=== PATIENT | female | born 1950 | race Caucasian/White ===

== ENCOUNTER 2017-02-27 12:05 | Emergency (ER) | payer MEDICARE, OTHER ==
[~2017-02-27] VITALS: Ht 160 cm; Wt 85.0 kg
[~2017-02-27 12:05] MED LIST: ALBU18HF IH; ALEN70TA30 PO; AMLO2.5T78 PO; ASC500 PO; ASPI-664 PO; DICL100G37 TOP; DOCU-144 PO; ERGO500014 PO; ESOM40CA PO; FER325 PO; FLUO20CA38 PO; HYDR12.58 PO; LEVO100T87 PO; LEVO500T10 PO; LORA-186 PO; METF1000 PO; METO5TAB58 PO; PREMVAG VAG; PROC10TA10 PO; RPGL.5T PO; SIMV20TA2 PO
[2017-02-27 12:08] VITALS: Ht 160 cm; Wt 85.0 kg
[2017-02-27] MEDS ORDERED: LIDOCAINE 1% (MDV) 20 ML INJ SC ONE (13:30)
[2017-02-27] MEDS ORDERED: IBUP-1542 PO (14:07)
[2017-02-27] MEDS ORDERED: CLIN-73 PO (14:08)
--- NOTE | 2017-02-27 17:05 | ERD ---
ER Documentation Chief Complaint Date/Time DATE: 02/27/17 TIME: 16:51 Chief Complaint ruptured abscess HPI Patient is a 66-year-old female with a past medical history of diabetes, hypertension, hyperlipidemia, hypothyroidism, s/p colostomy bag placement presents to the emergency department for concerns of an abscess. Patient states 3 days ago she developed redness and swelling to her perineum. Patient states this morning, the affected area "exploded". Patient denies any fevers, chills, nausea, vomiting, abdominal pain. Patient denies any history of insect bites. Patient does not stool through her rectum, stool output is solely through colostomy bag. She reports normal stool output through colostomy bag. ROS All systems reviewed and are negative except as per history of present illness. Medications Home Meds Active Scripts Clindamycin Hcl* (Clindamycin Hcl*) 300 Mg Capsule, 300 MG PO TID for 10 Days, CAP Prov:ALDEN BELCHER PA-C 02/27/17 Ibuprofen* (Motrin*) 600 Mg Tab, 600 MG PO Q6, #30 TAB Prov:ALDEN BELCHER PA-C 02/27/17 Ascorbic Acid (Vitamin C) 500 Mg Tab, 500 MG PO BID, #60 TAB Prov:KRISHNA MOSER MD 06/05/16 Levofloxacin* (Levofloxacin*) 500 Mg Tablet, 500 MG PO DAILY, #5 TAB Prov:KRISHNA MOSER MD 06/05/16 Prochlorperazine* (Prochlorperazine*) 10 Mg Tablet, 10 MG PO Q6H Y for NAUSEA, # 20 TAB Prov:KRISHNA MOSER MD 06/05/16 Hydrochlorothiazide* (Hydrochlorothiazide*) 12.5 Mg Tablet, 12.5 MG PO DAILY, # 30 TAB Prov:KRISHNA MOSER MD 06/05/16 Ferrous Sulfate* (Ferrous Sulfate*) 325 Mg Tabec, 325 MG PO BID, #60 TAB Prov:KRISHNA MOSER MD 06/05/16 Reported Medications Amlodipine Besylate* (Amlodipine Besylate*) 2.5 Mg Tablet, 2.5 MG PO DAILY, TAB 07/17/14 Diclofenac Sodium* (Voltaren* Gel) 1% -100 Gm Gel, 2 GM TOP BID, TUB 07/17/14 Ergocalciferol* (Drisdol* (Vitamin D2)) 50,000 Unit Capsule, 25934 UNITS PO EVERY MONTH, CAP 07/17/14 Albuterol Sulfate* (Ventolin HFA*) 18 Gm Hfa.aer.ad, 2 PUFF IH Q4H Y for WHEEZING AND RESP DISTRESS, EA 07/17/14 Simvastatin (Simvastatin) 20 Mg Tablet, 20 MG PO HS, TAB 07/17/14 Estrogens Conjugated* (Premarin* Vaginal Cream) 1 Applic Cr, 1 APPLIC VAG QHS X 7 DAYS, TUB 07/17/14 Repaglinide* (Prandin*) 0.5 Mg Tablet, 0.5 MG PO TID, TAB 07/17/14 Esomeprazole Mag Trihydrate (Nexium) 40 Mg Capsule.dr, 40 MG PO DAILY, CAP 07/17/14 Metoclopramide* (Reglan*) 5 Mg Tablet, 5 MG PO TID Y for NAUSEA AND OR VOMITING , TAB 07/17/14 Metformin Hcl* (Metformin Hcl*) 1,000 Mg Tablet, 1000 MG PO BID, TAB 07/17/14 Levothyroxine Sodium* (Levothyroxine Sodium*) 100 Mcg Tablet, 100 MCG PO DAILY, TAB 07/17/14 Alendronate Sodium* (Fosamax*) 70 Mg Tablet, 70 MG PO Q7D, TAB 07/17/14 Fluoxetine Hcl* (Prozac*) 20 Mg Capsule, 20 MG PO DAILY, CAP 07/17/14 Docusate Sodium* (Colace*) 100 Mg Capsule, 100 MG PO BID, CAP 07/17/14 Loratadine* (Claritin*) 10 Mg Tablet, 10 MG PO DAILY, TAB 07/17/14 Aspirin* (Aspirin* (EC)) 81 Mg Tablet.dr, 81 MG PO DAILY, TAB 07/17/14 Allergies Allergies: Coded Allergies: Sulfa (Sulfonamide Antibiotics) (Verified Allergy, Mild, NAUSEA, 06/01/16) iodine (Verified Allergy, Mild, RASH, 06/01/16) metronidazole (Verified Allergy, Mild, ITCHING, 06/01/16) PMhx/Soc History of Surgery: Yes (HERNIA SURGERY AND COLORECTAL SURGERY FOR CANCER) Anesthesia Reaction: No Hx Neurological Disorder: No Hx Respiratory Disorders: No Hx Cardiac Disorders: Yes (HTN) Hx Psychiatric Problems: No Hx Alcohol Use: No Hx Substance Use: No Hx Tobacco Use: No Smoking Status: Never smoker Physical Exam Vitals Vital Signs Date Time Temp Pulse Resp B/P Pulse Ox O2 Delivery O2 Flow Rate FiO2 02/27/17 12:08 98.8 102 18 146/68 99 Physical Exam GENERAL: Well-developed, well-nourished female. Appears in no acute distress. HEAD: Normocephalic, atraumatic. EYES: Pupils are equally reactive bilaterally. EOMs grossly intact. No conjunctival erythema. ENT: Moist mucous membranes. No uvula deviation. No kissing tonsils. NECK: Supple. No meningismus. Normal range of motion of the neck. LUNG: Clear to auscultation bilaterally. No rhonchi, wheezing, rales or coarse breath sounds. HEART: Regular rate and rhythm. No murmurs, rubs or gallops. ABDOMEN: No scars, ecchymosis or rashes noted. Soft, nontender, and nondistended. Positive bowel sounds in all four quadrants. No rebound tenderness , no guarding. (-) McBurney's point tenderness. No CVA tenderness. BUTTOCKS: Right buttocks erythematous and swollen with possible ulceration. Active yellow discharge. No anal opening, closed off. BACK: No midline tenderness. EXTREMITIES: Equal pulses bilaterally. No peripheral clubbing, cyanosis or edema. No unilateral leg swelling. NEUROLOGIC: Alert and oriented. Moving all four extremities without any difficulty. Normal speech. Steady gait. SKIN: Normal color. Warm and dry. No rashes or lesions. Results 24 hrs Current Medications Medications (Trade) Dose Ordered Sig/Armen Route PRN Reason Start Time Stop Time Status Last Admin Dose Admin Lidocaine (Xylocaine 1% (Mdv) 20 ml) 20 ml ONCE ONCE SC 02/27/17 13:30 02/27/17 13:31 DC Procedures/MDM ED COURSE: The patient was stable throughout ED course. I kept the patient and/or family informed of laboratory and diagnostic imaging results throughout the ED course. PROCEDURES: INCISION AND DRAINAGE: The patient was verbally consented prior to procedure. Patient was explained the risks, benefits and alternatives to this procedure. Location: R buttocks Abscess size: 2 cm circular abscess with large surrounding area of erythema Anesthesia: local 1% lidocaine, 5 cc Preparation: The area was prepped in a sterile fashion using cloraseptic solution. A sterile field was prepared. Technique: A sterile 11 blade scalpel was used to make a 1 cm linear incision into the abscess. Procedure: A midline abscess incision was made using a sterile scalpel in a linear fashion. Purulent material was expressed with direct pressure. Blunt probing was used to break up loculations. Bleeding was minimal. Packing: none The patient tolerated the procedure well with no complications. The wound was dressed in sterile gauze. The patient was neurovascularly intact post- procedure. Post-procedural wound care was discussed with the patient. MEDICAL DECISION MAKING: Patient is a 66-year-old female with history of hypertension, diabetes, hyperlipidemia, s/p colostomy bag who presents with right buttocks abscess. Vital signs were reviewed. Patient is afebrile. Patient was not hypoxic. Incision and drainage was performed. Purulent discharge was expressed from the affected site. At this time the patient's presentation is consistent with right buttocks abscess. Low suspicion for perirectal abscess, perianal abscess , fistula, external hemorrhoids. Patient was advised to return to the ED in 2 days for wound recheck. Patient advised to take full course of antibiotics. She was examined by my supervising physician Dr. Chandler, who agrees that patient is stable for outpatient management at this time. PRESCRIPTION: Clindamycin DISCHARGE: At this time, patient is stable for discharge and outpatient management. Wound recheck advised in 2 days. I have instructed the patient to follow-up with his/ her primary care physician in 1-2 days. I have discussed with the patient the possibility of needing to see a specialist for further workup and imaging studies if symptoms persist. I have instructed the patient to promptly return to the ER for any new or worsening symptoms including increased pain, fever, nausea, vomiting, weakness or LOC. The patient and/or family expressed understanding of and agreement with this plan. All questions were answered. Home care instructions were provided. Departure Diagnosis: Primary Impression: Abscess Condition: Stable Patient Instructions: Abscess, Incision And Drainage Referrals: DAGO CORONADO MD (PCP) Additional Instructions: Return in 2 days for wound recheck. Call your primary care doctor TOMORROW for an appointment during the next 1-2 days.See the doctor sooner or return here if your condition worsens before your appointment time. ALDEN BELCHER PA-C Feb 27, 2017 17:05 Call your primary care doctor TOMORROW for an appointment during the next 1-2 days.See the doctor sooner or return here if your condition worsens before your appointment time. ALDEN BELCHER PA-C Feb 27, 2017 17:05
== END 2017-02-27 14:24 | disposition home or self-care (01) ==
LOC: FTE 12:05
DX: L02.31 Cutaneous abscess of buttock (principal); I10 Essential (primary) hypertension; E11.9 Type 2 diabetes mellitus without complications; E03.9 Hypothyroidism, unspecified; Z79.82 Long term (current) use of aspirin; Z79.84 Long term (current) use of oral hypoglycemic drugs; Z85.038 Personal history of other malignant neoplasm of large intestine

== ENCOUNTER 2017-03-18 19:08 | Emergency (ER) | payer MEDICARE, OTHER ==
[~2017-03-18] VITALS: Ht 162.6 cm; Wt 86.0 kg
[~2017-03-18 19:08] MED LIST changes: +CLIN-73 PO; +IBUP-1542 PO
[2017-03-18 19:10] VITALS: Ht 162.6 cm; Wt 86.0 kg
[2017-03-18] MEDS ORDERED: ONDANSETRON 4 MG INJ IV STA (20:18)
[2017-03-18] MEDS ORDERED: HYDROmorphONE 1 MG/ML SYG IV STA (20:18)
[2017-03-18] MEDS ORDERED: SOD CHLORIDE 0.9% 1,000 ML IV STA (20:18)
[2017-03-18 20:40] LABS: BASOPHILS % 0.3 % (0.0-2.0); EOSINOPHILS # 0.1 10^3/ul (0.0-0.5); EOSINOPHILS % 1.1 % (0.0-7.0); HEMATOCRIT 39.5 % (37.0-47.0); HEMOGLOBIN 12.9 g/dl (12.0-16.0); LYMPHOCYTES # 2.3 10^3/ul (0.8-2.9); LYMPHOCYTES % 19.6 % (15.0-51.0); MEAN CORPUSCULAR HEMOGLOBIN 28.3 pg (29.0-33.0); MEAN CORPUSCULAR HGB CONC 32.7 g/dl (32.0-37.0); MEAN CORPUSCULAR VOLUME 86.6 fl (82.0-101.0); MEAN PLATELET VOLUME 12.9 fl (7.4-10.4); MONOCYTE # 0.6 10^3/ul (0.3-0.9); MONOCYTES % 5.5 % (0.0-11.0); NEUTROPHIL # 8.4 10^3/ul (1.6-7.5); NEUTROPHILS % 73.1 % (39.0-77.0); PLATELET COUNT 211 10^3/UL (140-415); RED BLOOD COUNT 4.56 10^6/ul (4.20-5.40); RED CELL DISTRIBUTION WIDTH 14.6 % (11.5-14.5); WHITE BLOOD COUNT 11.5 10^3/ul (4.8-10.8)
[2017-03-18 20:59] LABS: ALBUMIN/GLOBULIN RATIO 1.51; BILIRUBIN,INDIRECT 0.2 mg/dl (0-1.1); BILIRUBIN,TOTAL 0.2 mg/dl (0.2-1.3); CALCIUM 9.7 mg/dl (8.4-10.2); CREATININE 0.72 mg/dl (0.44-1.00); TOTAL PROTEIN 8.3 g/dl (6.1-8.1)
--- NOTE | 2017-03-18 21:04 | RADRPT ---
PROCEDURE: CT Abdomen and Pelvis without contrast. CLINICAL INDICATION: Pain. TECHNIQUE: CT scan of the abdomen and pelvis was performed on a multidetector slice CT scanner. No intravenous contrast material was utilized. Sagittal and coronal reformatted images were obtained fr om the axial source images. Images were reviewed on a high-resolution PACS workstation. Exam CTDlvol = 18 mGy and DLP = 994 Gy-cm. One of the following 3 dose reduction techniques were used: Automated exposure control; adjustment of the mA and/or kV according to patient size; or use of iterative rec onstruction technique. COMPARISON: 06/01/2016. FINDINGS: The patient status post rectosigmoid colon resection. There is redemonstrated left lower quadrant c olostomy. The colon proximal to the colostomy is stool filled in a normal caliber. There is a simil ar pattern of dilated mid and distal small bowel extending into the pelvis with a probable transitio n point, although not well defined, suggesting a partial small bowel obstruction. Appendix is not d istinctly visualized. There is no evidence for diverticulitis. There is a small amount of pelvic f ree fluid. There is no free intraperitoneal gas. The liver is overall normal in size. No intrahepatic lesions are identified. The gallbladder is norm al in appearance. There is no definite biliary ductal dilation. Pancreas is normal in appearance. Th e spleen is unremarkable.. There are no adrenal masses. The aorta is normal caliber. Atheroscleroti c vascular calcifications are present. Kidneys are normal in appearance without hydronephrosis, mass or calculus.. Ureters are of normal ca liber and without evidence for an obstructing calculus. The urinary bladder is normal in appearance .. Uterus unremarkable. The ovaries are not well characterized. Limited evaluation of the lung bases is unremarkable. There are degenerative changes of the lumbar spine. IMPRESSION: 1. Status post rectosigmoid colon resection with left lower quadrant colostomy. 2. Moderately dilated loops of mid and distal small bowel extending to the pelvis with probable tra nsition point, not well defined. Appearance is suggestive of a partial small bowel obstruction, sim ilar in appearance to the prior study. 3. Small amount of pelvic free fluid. 4. Otherwise no change. RPTAT: HMVK .Maurice Koenig MD, MD Date Time Electronically viewed and signed by .Maurice Koenig MD, MD on 03/18/2017 21:04 .K/
[2017-03-18] MEDS ORDERED: HYDR-902 PO (21:18)
[2017-03-18] MEDS ORDERED: DOCU-144 PO (21:18)
[2017-03-18] MEDS ORDERED: SENN-53 PO (21:18)
[2017-03-18] MEDS ORDERED: FLUO20CA22 PO (21:29)
[2017-03-18] MEDS ORDERED: ASCO500C7 PO (21:30)
[2017-03-18] MEDS ORDERED: SIMV20TA PO (21:30)
[2017-03-18] MEDS ORDERED: AMLO2.5T78 PO (21:31)
[2017-03-18] MEDS ORDERED: ASPI-664 PO (21:31)
[2017-03-18] MEDS ORDERED: BENA1TAB13 PO (21:31)
[2017-03-18] MEDS ORDERED: ALEN70TA30 PO (21:32)
[2017-03-18] MEDS ORDERED: REPA0.5T3 PO (21:32)
[2017-03-18] MEDS ORDERED: METF1000 PO (21:32)
[2017-03-18] MEDS ORDERED: ESOM40CA PO (21:33)
[2017-03-18] MEDS ORDERED: CANA100T PO (21:33)
[2017-03-18] MEDS ORDERED: LEVO125T75 PO (21:34)
[2017-03-18] MEDS ORDERED: OMEG1CAP2 PO (21:34)
--- NOTE | 2017-03-18 21:34 | ERD ---
ER Documentation Chief Complaint Date/Time DATE: 03/18/17 TIME: 21:32 Chief Complaint lower abd pain w/ colostomy HPI Patient is a 66-year-old female with hypertension, diabetes, and previous small bowel obstruction who presents with abdominal pain. The abdominal pain started at 11 AM. She feels pain in the whole abdomen. She had vomiting. She did have a bowel movement this morning and her colostomy. She denies fevers. She has had no treatment as of yet. Upon review of old medical records the patient has had multiple visits to the ER for various complaints. She said that her primary doctor is Dr. Sarthak Resendiz. Her log data technician is Dr. Richardson and her surgeon is a surgeon at [facility]. ROS All systems reviewed and are negative except as per history of present illness. Medications Home Meds Active Scripts Sennosides* (Senna Lax*) 8.6 Mg Tablet, 1 TAB PO DAILY, #30 TAB Prov:REG RICE MD 03/18/17 Docusate Sodium* (Colace*) 100 Mg Capsule, 100 MG PO BID, #60 CAP Prov:REG RICE MD 03/18/17 Hydrocodone/Acetaminophen ([place] 10-325 Tablet) 1 Each Tablet, 1 TAB PO Q6H Y for PAIN, #7 TAB Prov:REG RICE MD 03/18/17 Reported Medications Benazepril-Hydrochlorothiazide (Benazepril-Hydrochlorothiazide) 20-12.5 Mg Tablet, 1 TAB PO DAILY, #30 TAB 03/18/17 Aspirin* (Aspirin* EC) 81 Mg Tablet.dr, 81 MG PO DAILY, TAB 03/18/17 Amlodipine Besylate* (Amlodipine Besylate*) 2.5 Mg Tablet, 2.5 MG PO BID, #30 TAB 03/18/17 Simvastatin* (Zocor*) 20 Mg Tablet, 20 MG PO QHS, #30 TAB 03/18/17 Ascorbic Acid* (Vitamin C*) 500 Mg Capsule.sa, 500 MG PO DAILY, CAP 03/18/17 Fluoxetine Hcl* (Fluoxetine Hcl*) 20 Mg Capsule, 20 MG PO DAILY, CAP 03/18/17 Discontinued Reported Medications Amlodipine Besylate* (Amlodipine Besylate*) 2.5 Mg Tablet, 2.5 MG PO DAILY, TAB 07/17/14 Diclofenac Sodium* (Voltaren* Gel) 1% -100 Gm Gel, 2 GM TOP BID, TUB 07/17/14 Ergocalciferol* (Drisdol* (Vitamin D2)) 50,000 Unit Capsule, 37668 UNITS PO EVERY MONTH, CAP 07/17/14 Albuterol Sulfate* (Ventolin HFA*) 18 Gm Hfa.aer.ad, 2 PUFF IH Q4H Y for WHEEZING AND RESP DISTRESS, EA 07/17/14 Simvastatin (Simvastatin) 20 Mg Tablet, 20 MG PO HS, TAB 07/17/14 Estrogens Conjugated* (Premarin* Vaginal Cream) 1 Applic Cr, 1 APPLIC VAG QHS X 7 DAYS, TUB 07/17/14 Repaglinide* (Prandin*) 0.5 Mg Tablet, 0.5 MG PO TID, TAB 07/17/14 Esomeprazole Mag Trihydrate (Nexium) 40 Mg Capsule.dr, 40 MG PO DAILY, CAP 07/17/14 Metoclopramide* (Reglan*) 5 Mg Tablet, 5 MG PO TID Y for NAUSEA AND OR VOMITING , TAB 07/17/14 Metformin Hcl* (Metformin Hcl*) 1,000 Mg Tablet, 1000 MG PO BID, TAB 07/17/14 Levothyroxine Sodium* (Levothyroxine Sodium*) 100 Mcg Tablet, 100 MCG PO DAILY, TAB 07/17/14 Alendronate Sodium* (Fosamax*) 70 Mg Tablet, 70 MG PO Q7D, TAB 07/17/14 Fluoxetine Hcl* (Prozac*) 20 Mg Capsule, 20 MG PO DAILY, CAP 07/17/14 Docusate Sodium* (Colace*) 100 Mg Capsule, 100 MG PO BID, CAP 07/17/14 Loratadine* (Claritin*) 10 Mg Tablet, 10 MG PO DAILY, TAB 07/17/14 Aspirin* (Aspirin* (EC)) 81 Mg Tablet.dr, 81 MG PO DAILY, TAB 07/17/14 Discontinued Scripts Clindamycin Hcl* (Clindamycin Hcl*) 300 Mg Capsule, 300 MG PO TID for 10 Days, CAP Prov:ALDEN BELCHER PA-C 02/27/17 Ibuprofen* (Motrin*) 600 Mg Tab, 600 MG PO Q6, #30 TAB Prov:ALDEN BELCHER PA-C 02/27/17 Ascorbic Acid (Vitamin C) 500 Mg Tab, 500 MG PO BID, #60 TAB Prov:KRISHNA MOESR MD 06/05/16 Levofloxacin* (Levofloxacin*) 500 Mg Tablet, 500 MG PO DAILY, #5 TAB Prov:KRISHNA MOSER MD 06/05/16 Prochlorperazine* (Prochlorperazine*) 10 Mg Tablet, 10 MG PO Q6H Y for NAUSEA, # 20 TAB Prov:KRISHNA MSOER MD 06/05/16 Hydrochlorothiazide* (Hydrochlorothiazide*) 12.5 Mg Tablet, 12.5 MG PO DAILY, # 30 TAB Prov:KRISHNA MOSER MD 06/05/16 Ferrous Sulfate* (Ferrous Sulfate*) 325 Mg Tabec, 325 MG PO BID, #60 TAB Prov:KRISHNA MOSER MD 06/05/16 Allergies Allergies: Coded Allergies: Sulfa (Sulfonamide Antibiotics) (Verified Allergy, Mild, NAUSEA, 03/18/17) iodine (Verified Allergy, Mild, RASH, 03/18/17) metronidazole (Verified Allergy, Mild, ITCHING, 03/18/17) PMhx/Soc History of Surgery: Yes (HERNIA SURGERY AND COLORECTAL SURGERY FOR CANCER) Anesthesia Reaction: No Hx Neurological Disorder: No Hx Respiratory Disorders: No Hx Cardiac Disorders: Yes (HTN) Hx Psychiatric Problems: No Hx Alcohol Use: No Hx Substance Use: No Hx Tobacco Use: No Smoking Status: Never smoker FmHx Family History: diabetes Physical Exam Vitals Vital Signs Date Time Temp Pulse Resp B/P Pulse Ox O2 Delivery O2 Flow Rate FiO2 03/18/17 19:10 98.6 67 20 111/73 98 Physical Exam Const: No acute distress Head: Atraumatic Eyes: Normal Conjunctiva ENT: Normal External Ears, Nose and Mouth. Neck: Full range of motion..~ No meningismus. Resp: Clear to auscultation bilaterally Cardio: Regular rate and rhythm, no murmurs Abd: Soft, colostomy stoma is pink and putting out stool, generalized tenderness to palpation without rebound or guarding Skin: No petechiae or rashes Back: No midline or flank tenderness Ext: No cyanosis, or edema Neur: Awake and alert Psych: Normal Mood and Affect Result Diagram: 03/18/17200903/18/172009 Results 24 hrs Laboratory Tests Test 03/18/17 20:10 White Blood Count 11.510^3/ul Red Blood Count 4.5610^6/ul Hemoglobin 12.9g/dl Hematocrit 39.5% Mean Corpuscular Volume 86.6fl Mean Corpuscular Hemoglobin 28.3pg Mean Corpuscular Hemoglobin Concent 32.7g/dl Red Cell Distribution Width 14.6% Platelet Count 14144^3/UL Mean Platelet Volume 12.9fl Neutrophils % 73.1% Lymphocytes % 19.6% Monocytes % 5.5% Eosinophils % 1.1% Basophils % 0.3% Nucleated Red Blood Cells % 0.0/100WBC Neutrophils # 8.410^3/ul Lymphocytes # 2.310^3/ul Monocytes # 0.610^3/ul Eosinophils # 0.110^3/ul Basophils # 0.010^3/ul Nucleated Red Blood Cells # 0.010^3/ul Sodium Level 138mmol/L Potassium Level 4.0mmol/L Chloride Level 101mmol/L Carbon Dioxide Level 27mmol/L Anion Gap 14 Blood Urea Nitrogen 16mg/dl Creatinine 0.72mg/dl Glucose Level 190mg/dl Calcium Level 9.7mg/dl Total Bilirubin 0.2mg/dl Direct Bilirubin 0.00mg/dl Indirect Bilirubin 0.2mg/dl Aspartate Amino Transf (AST/SGOT) 36IU/L Alanine Aminotransferase (ALT/SGPT) 48IU/L Alkaline Phosphatase 83IU/L Total Protein 8.3g/dl Albumin 5.0g/dl Globulin 3.30g/dl Albumin/Globulin Ratio 1.51 Lipase 77U/L Current Medications Medications (Trade) Dose Ordered Sig/Armen Route PRN Reason Start Time Stop Time Status Last Admin Dose Admin Sodium Chloride (NS) 1,000 ml @ 1,000 mls/hr Q1H STAT IV 03/18/17 20:18 03/18/17 21:17 DC 03/18/17 20:23 Hydromorphone HCl (Dilaudid) 1 mg ONCE STAT IV 03/18/17 20:18 03/18/17 20:20 DC 03/18/17 20:24 Ondansetron HCl (Zofran Inj) 4 mg ONCE STAT IV 03/18/17 20:18 03/18/17 20:20 DC 03/18/17 20:24 Procedures/MDM CT scan of the abdomen pelvis shows possible partial small bowel obstruction per radiology. Patient is a 66-year-old female with diabetes, hypertension, colostomy, and previous small bowel obstruction who presents with abdominal pain. She did have vomiting today which she was putting out stool in her colostomy. The patient is in no acute distress here in the emergency department other than having generalized abdominal pain. Her white blood cell count is slightly elevated but I doubt infection or sepsis. I believe outpatient management is appropriate as she is making stool. This does not appear to be a full obstruction. The patient will be given a trial of outpatient management with [place], Colace, and senna. The patient can follow-up with the primary doctor within 24 hours and can return if symptoms worsen. Departure Diagnosis: Primary Impression: Partial small bowel obstruction Additional Impression: Abdominal pain Abdominal location: generalized Qualified Code: R10.84 - Generalized abdominal pain Condition: Fair Patient Instructions: Abdominal Pain Additional Instructions: Llame al doctor MAANA y [place] andry WOODROW PARA DENTRO DE 1-2 TORREZ.Dgale a la secretaria que nosotros le instruimos hacer esta woodrow.Avise o llame si bueno condicin se empeora antes de la woodrow. Regresa aqui si peor o no mejor. REG RICE MD Mar 18, 2017 21:34
[2017-03-18 21:38] VITALS: BP 131/58; PULSE 86; RESP 18
== END 2017-03-18 21:53 | disposition home or self-care (01) ==
LOC: E/R 19:08
DX: K56.60 Unspecified intestinal obstruction (principal); R10.84 Generalized abdominal pain; I10 Essential (primary) hypertension; E11.9 Type 2 diabetes mellitus without complications; Z79.82 Long term (current) use of aspirin; Z85.038 Personal history of other malignant neoplasm of large intestine
CPT/HCPCS: 36415; 74176; 80053; 83690; 85025; 96374; 96375; 99285; J1170; J2405; J7030

== ENCOUNTER 2018-09-11 02:08 | Emergency (ER) | END 2018-09-11 05:17 | disposition home or self-care (01) ==

== ENCOUNTER → 2019-01-20 | Outpatient (CLI) | payer MEDICARE, OTHER ==
[~2019-01-20] MED LIST changes: -ALBU18HF IH; -ALEN70TA30 PO; +ALEN70TA5 PO; -ASC500 PO; +ASCO500C7 PO; -ASPI-664 PO; +ASPI-817 PO; +BENA1TAB13 PO; +CANA100T PO; -CLIN-73 PO; -DICL100G37 TOP; -ERGO500014 PO; -FER325 PO; +FLUO20CA22 PO; -FLUO20CA38 PO; +HYDR-3980 PO; -HYDR12.58 PO; -IBUP-1542 PO; -LEVO100T87 PO; +LEVO125T7 PO; -LEVO500T10 PO; +LOPE2CAP PO; -LORA-186 PO; -METF1000 PO; +METF100010 PO; -METO5TAB58 PO; +OMEG1CAP2 PO; +ONDA4TAB14 PO; -PREMVAG VAG; -PROC10TA10 PO; +REPA0.5T3 PO; -RPGL.5T PO; +SENN-120 PO; +SIMV20TA PO; -SIMV20TA2 PO
== END | disposition home or self-care (01) ==
LOC: VAS 13:53
PROVIDERS: ATTEND Internal Medicine
DX: M79.89 Other specified soft tissue disorders (principal)
CPT/HCPCS: 93970

== ENCOUNTER 2019-04-21 05:13 | Observation (INO) | payer MEDICARE, OTHER ==
[~2019-04-21] VITALS: Ht 162.6 cm; Wt 92.1 kg
[~2019-04-21 05:13] MED LIST changes: +ATEN50TA PO; +CELE200C PO; +NAPR-688 PO; +REPA1TAB5 PO
[2019-04-21] MEDS ORDERED: ONDANSETRON 4 MG INJ IV STA (07:10)
[2019-04-21] MEDS ORDERED: SOD CHLORIDE 0.9% 500 ML IV STA (07:10)
--- NOTE | 2019-04-21 07:17 | ERD ---
ER Documentation Chief Complaint Chief Complaint PT BIB RA C/O CP RADIATING TO BACK,DIZZINESS AND MILD SOB X3 HRS. HPI This is a very pleasant 68-year-old female with a history of high cholesterol hypothyroidism [id number] diabetes mellitus and hypertension. The patient indicates that she awoke at 3 AM this morning roughly 4 hours prior to arrival with a sudden onset of chest pain. She states she felt lightheaded and dizzy and the room spinning around her. She she checked her blood sugar and it was 146. Her blood pressure she stated was also normal. She took her morning medications which included atenolol. She developed a sudden onset of chest pain which she stated was a pressure-like sensation. It did radiate to her left arm but did not involve her neck. She stated it radiated to her back. She took nitroglycerin and her symptoms improved. The patient states she lives alone and she attempted to stand up but the dizziness still persisted and therefore phone 911. She stated her chest pressure was 10 out of 10. After taking the nitroglycerin it is 4 out of 10. She stated she saw carbon electrodes supervisor 2 months ago she has been having similar symptoms. Her carbon electrodes supervisor was Dr. Cruz. Her primary care physician is Dr. Joshua. ROS All systems reviewed and are negative except as per history of present illness. Medications Home Meds Active Scripts Ondansetron (Ondansetron Odt) 4 Mg Tab.rapdis, 4 MG PO Q6H PRN for NAUSEA AND/OR VOMITING, #10 TAB Prov:KIERSTEN ANDREWS MD 09/11/18 Loperamide Hcl* (Imodium*) 2 Mg Capsule, 2 MG PO Q6H PRN for DIARRHEA, #20 CAP MAX 16 mg/day Prov:KIERSTEN ANDREWS MD 09/11/18 Sennosides* (Senna Lax*) 8.6 Mg Tablet, 1 TAB PO DAILY, #30 TAB Prov:REG RICE MD 03/18/17 Docusate Sodium* (Colace*) 100 Mg Capsule, 100 MG PO BID, #60 CAP Prov:REG RICE MD 03/18/17 Hydrocodone/Acetaminophen ([place] 10-325 Tablet) 1 Each Tablet, 1 TAB PO Q6H PRN for PAIN, #7 TAB Prov:REG RICE MD 03/18/17 Reported Medications [place]-3 Acid Ethyl Esters (Lovaza) 1 Gm Capsule, 1 GM PO DAILY, CAP 03/18/17 Levothyroxine Sodium* (Levothyroxine Sodium*) 125 Mcg Tablet, 125 MCG PO BEFORE BREAKFAST, #30 TAB 03/18/17 Canagliflozin (Invokana) 100 Mg Tablet, 100 MG PO DAILY, TAB 03/18/17 Esomeprazole Mag Trihydrate (Nexium) 40 Mg Capsule.dr, 40 MG PO DAILY, #30 CAP 03/18/17 Alendronate Sodium* (Fosamax*) 70 Mg Tablet, 70 MG PO Q7D, #4 TAB 03/18/17 Metformin Hcl* (Metformin Hcl*) 1,000 Mg Tablet, 1000 MG PO WITH BREAKFAST DINNE, #60 TAB 03/18/17 Repaglinide* (Repaglinide*) 0.5 Mg Tablet, 0.5 MG PO AC MEALS, TAB 03/18/17 Benazepril-Hydrochlorothiazide (Benazepril-Hydrochlorothiazide) 20-12.5 Mg Tablet, 1 TAB PO DAILY, #30 TAB 03/18/17 Aspirin* (Aspirin* EC) 81 Mg Tablet.dr, 81 MG PO DAILY, TAB 03/18/17 Amlodipine Besylate* (Amlodipine Besylate*) 2.5 Mg Tablet, 2.5 MG PO BID, #30 TAB 03/18/17 Simvastatin* (Zocor*) 20 Mg Tablet, 20 MG PO QHS, #30 TAB 03/18/17 Ascorbic Acid* (Vitamin C*) 500 Mg Capsule.sa, 500 MG PO DAILY, CAP 03/18/17 Fluoxetine Hcl* (Fluoxetine Hcl*) 20 Mg Capsule, 20 MG PO DAILY, CAP 03/18/17 Allergies Allergies: Coded Allergies: Sulfa (Sulfonamide Antibiotics) (Verified Allergy, Mild, NAUSEA, 03/18/17) iodine (Verified Allergy, Mild, RASH, 03/18/17) metronidazole (Verified Allergy, Mild, ITCHING, 03/18/17) PMhx/Soc History of Surgery: Yes (HERNIA SURGERY AND partial colectomy with colostomy) Anesthesia Reaction: No Hx Neurological Disorder: No Hx Respiratory Disorders: No Hx Cardiac Disorders: Yes (HTN) Hx Psychiatric Problems: No Hx Miscellaneous Medical Probl: Yes (Colon cancer, diabetes) Hx Alcohol Use: No Hx Substance Use: No Hx Tobacco Use: No Smoking Status: Never smoker Physical Exam Vitals Vital Signs Date Temp Pulse Resp B/P (MAP) Pulse Ox O2 O2 Flow FiO2 Time Delivery Rate 04/21/19 65 24 184/83 99 Room Air 06:17 (116) 04/21/19 97.5 79 14 184/96 98 05:17 (125) Physical Exam Constitutional:Well-developed. Well-nourished. HEENT:Normocephalic. Atraumatic.Pupils were equal round reactive to light. Moist mucous membranes.No tonsillar exudates. Neck: No nuchal rigidity. No lymphadenopathy. No posterior cervical spine tender ness or step-offs. Respiratory: Not using accessory muscles of respiration.Lungs were clear to auscultation bilaterally. No rhonchi. No rales. No wheezing. Cardiovascular: Regular rate regular rhythm.No murmurs. No rubs were appreciated.S1, S2 normal. Distal pulses are palpable 2+ bilaterally. GI: Abdomen was soft. Nontender. Non Distended. No pulsatile abdominal masses or bruits. No rebound. No guarding. Bowel sounds were present and normal. Muscle skeletal: Full range of motion of both the upper and lower extremities bilaterally.Normal muscle tone.No assymetrical calf tenderness or swelling. Skin: No petechia, no purpura. No lesions on the palms or the soles of the feet. No maculopapular rash. NEURO: Patient was alert, awake, orientated x3.No facial droop. Gait observed and normal with no ataxia.Speech had regular rate and rhythm. No focal neurological deficits. Peripheral fatigable nystagmus Result Diagram: 04/21/1952304/21/1924 Results 24 hrs Laboratory Tests Test 04/21/19 05:24 White Blood Count 7.9 10^3/ul Red Blood Count 4.60 10^6/ul Hemoglobin 12.2 g/dl Hematocrit 37.9 % Mean Corpuscular Volume 82.4 fl Mean Corpuscular Hemoglobin 26.5 pg Mean Corpuscular Hemoglobin Concent 32.2 g/dl Red Cell Distribution Width 14.2 % Platelet Count 175 10^3/UL Mean Platelet Volume 12.7 fl Immature Granulocytes % 0.300 % Neutrophils % 61.1 % Lymphocytes % 29.2 % Monocytes % 7.4 % Eosinophils % 1.6 % Basophils % 0.4 % Nucleated Red Blood Cells % 0.0 /100WBC Immature Granulocytes # 0.020 10^3/ul Neutrophils # 4.8 10^3/ul Lymphocytes # 2.3 10^3/ul Monocytes # 0.6 10^3/ul Eosinophils # 0.1 10^3/ul Basophils # 0.0 10^3/ul Nucleated Red Blood Cells # 0.0 10^3/ul Sodium Level 142 mmol/L Potassium Level 4.0 mmol/L Chloride Level 105 mmol/L Carbon Dioxide Level 28 mmol/L Anion Gap 9 Blood Urea Nitrogen 17 mg/dl Creatinine 0.64 mg/dl Est Glomerular Filtrat Rate mL/min > 60 mL/min Glucose Level 187 mg/dl Calcium Level 9.8 mg/dl Total Bilirubin 0.4 mg/dl Direct Bilirubin 0.00 mg/dl Indirect Bilirubin 0.4 mg/dl Aspartate Amino Transf (AST/SGOT) 31 IU/L Alanine Aminotransferase (ALT/SGPT) 29 IU/L Alkaline Phosphatase 71 IU/L Troponin I 0.018 ng/ml B-Type Natriuretic Peptide 620 PG/ML Total Protein 8.2 g/dl Albumin 4.5 g/dl Globulin 3.70 g/dl Albumin/Globulin Ratio 1.21 Lipase 111 U/L Procedures/MDM The patient presented to the emergency department with chest pain. My clinical evaluation and workup was to distinguish minor causes of chest pain from acute life threatening conditions such as myocardial infarction, pulmonary embolism, aortic dissection, esophageal rupture, cardiac tamponade. The patient was placed on a surveillance monitor and continuous pulse oximetry. IV access established by nursing staff. The patient was given aspirin. Nitroglycerin had already been given. The patient was refusing further nitroglycerin as she stated it was creating a headache. She also had physical exam findings suggestive of peripheral vertigo and was given Antivert and Zofran as well as a liter bolus of normal saline. The patient attempted to stand up but continued to still feel as though the room was spinning around her. Due to the near syncope episode I did feel the patient required admission for observation. She will receive serial twelve-lead EKG tracings and cardiac set of enzymes. Chest pain radiates to the back but my clinical suspicion was low for an aortic dissection. Chest radiograph was reviewed by myself and there is no widened mediastinum or cardiomegaly. No evidence of congestive heart failure. 12 Lead EKG tracing ordered and reviewed by myself showed: Normal sinus rhythm of 70 bpm and no arrhythmia. AR interval normal. QRS duration normal. No ST segment elevation No ST segment depression. No changes consistent with acute ischemia. She will be going to the telemetry service.I spoke with Dr. Joshua and the patient will be admitted under his care. Departure Diagnosis: Primary Impression: Chest pain Chest pain type: unspecified Qualified Codes: R07.9 - Chest pain, unspecified Additional Impressions: Near syncope Peripheral vertigo Laterality: unspecified laterality Qualified Codes: H81.399 - Other peripheral vertigo, unspecified ear Condition: Serious JOSÉ ANTONIO PINZON MD Apr 21, 2019 07:17
[2019-04-21] MEDS ORDERED: MECLIZINE 12.5 MG TAB PO ONE (07:30)
[2019-04-21] MEDS ORDERED: ACETAMINOPHEN 325 MG TAB PO PRN (07:30)
[2019-04-21] MEDS ORDERED: ASPIRIN (EC) 325 MG TAB PO ONE (07:30)
[2019-04-21] MEDS ORDERED: ONDANSETRON 4 MG INJ IV PRN ×2 (07:30→14:00)
[2019-04-21 13:31] VITALS: BP 137/90; PULSE 67; RESP 18
[2019-04-21 13:32] VITALS: Ht 162.6 cm; Wt 92.1 kg
[2019-04-21] MEDS ORDERED: morphine 2 MG INJ IV PRN (14:00)
[2019-04-21] MEDS ORDERED: NACL 0.9% 3 ML SYG IV SCH (14:00)
--- NOTE | 2019-04-21 14:12 | HP ---
Date/Time of Note Date/Time of Note DATE: 04/21/19 TIME: 14:10 Assessment/Plan VTE Prophylaxis Pharmacological prophylaxis: LMWH Lines/Catheters IV Catheter Type (from Nrsg): Saline Lock Assessment/Plan Hospital Course 1) chest pain - check troponing - 2D echo 2) diabetes - monitor blood sugar Result Diagram: 04/21/19 0524 04/21/19 0524 Results 24hrs Laboratory Tests Test 04/21/19 05:24 White Blood Count 7.9 # Red Blood Count 4.60 Hemoglobin 12.2 Hematocrit 37.9 Mean Corpuscular Volume 82.4 Mean Corpuscular Hemoglobin 26.5 L Mean Corpuscular Hemoglobin Concent 32.2 Red Cell Distribution Width 14.2 Platelet Count 175 Mean Platelet Volume 12.7 H Immature Granulocytes % 0.300 Neutrophils % 61.1 Lymphocytes % 29.2 Monocytes % 7.4 Eosinophils % 1.6 Basophils % 0.4 Nucleated Red Blood Cells % 0.0 Immature Granulocytes # 0.020 Neutrophils # 4.8 Lymphocytes # 2.3 Monocytes # 0.6 Eosinophils # 0.1 Basophils # 0.0 Nucleated Red Blood Cells # 0.0 Sodium Level 142 Potassium Level 4.0 Chloride Level 105 Carbon Dioxide Level 28 Anion Gap 9 Blood Urea Nitrogen 17 Creatinine 0.64 Est Glomerular Filtrat Rate mL/min > 60 Glucose Level 187 Calcium Level 9.8 Total Bilirubin 0.4 Direct Bilirubin 0.00 Indirect Bilirubin 0.4 Aspartate Amino Transf (AST/SGOT) 31 Alanine Aminotransferase (ALT/SGPT) 29 Alkaline Phosphatase 71 Troponin I 0.018 B-Type Natriuretic Peptide 620 H Total Protein 8.2 H Albumin 4.5 Globulin 3.70 H Albumin/Globulin Ratio 1.21 Lipase 111 HPI/ROS Admit Date/Time Admit Date/Time Apr 21, 2019 at 07:12 Hx of Present Illness Patient with hypertension, diabetes comes in with chest pain and lightheadedness. Patient currently denies any chest pain. PMH/Family/Social Past Medical History Medical History: diabetes, hypertension Medications Current Medications IV Flush (NS 3 ml) 3 ml PER PROTOCOL IV ; Start 04/21/19 at 14:00 Ondansetron HCl (Zofran Inj) 4 mg Q6H PRN IV NAUSEA/VOMITING; Start 04/21/19 at 14:00 Aspirin (Aspirin) 81 mg DAILY PO ; Start 04/22/19 at 09:00 Acetaminophen (Tylenol Tab) 650 mg Q6H PRN PO .PAIN 1-3 OR TEMP; Start 04/21/19 at 14:00 Morphine Sulfate (morphine) 2 mg Q4H PRN IV .PAIN 7-10; Start 04/21/19 at 14:00 Famotidine (Pepcid Iv) 20 mg Q12 IV ; Start 04/21/19 at 21:00 Enoxaparin Sodium (Lovenox) 30 mg DAILY SC ; Start 04/22/19 at 09:00 Aspirin (Halfprin) 81 mg DAILY PO ; Start 04/22/19 at 09:00; Status UNV Atenolol (Tenormin) 50 mg DAILY PO ; Start 04/22/19 at 09:00; Status UNV Celecoxib (Celebrex) 200 mg DAILY PO ; Start 04/22/19 at 09:00; Status UNV Levothyroxine Sodium (Synthroid) 125 mcg BEFORE BREAKFAST PO ; Start 04/22/19 at 07:00; Status UNV Metformin HCl (Glucophage) 1,000 mg WITH BREAKFAST DINNE PO ; Start 04/21/19 at 18:00; Status UNV Naproxen (Naprosyn) 500 mg BID PO ; Start 04/21/19 at 21:00; Status UNV Repaglinide (Prandin) 1 mg AC MEALS PO ; Start 04/21/19 at 17:30; Status UNV Coded Allergies: Sulfa (Sulfonamide Antibiotics) (Verified Allergy, Mild, NAUSEA, 04/21/19) iodine (Verified Allergy, Mild, RASH, 04/21/19) metronidazole (Verified Allergy, Mild, ITCHING, 04/21/19) Social History Smoking Status: Never smoker Exam/Review of Systems Vital Signs Vitals Vital Signs Date Temp Pulse Resp B/P (MAP) Pulse Ox O2 O2 Flow FiO2 Time Delivery Rate 04/21/19 98.6 67 18 137/90 93 Room Air 13:31 (106) Exam Constitutional: well developed Head: normocephalic, atraumatic Neck: supple Respiratory: diminished breath sounds Cardiovascular: regular rate and rhythm Gastrointestinal: soft, non-tender Extremities: normal pulses VICENTA GAUTAM Apr 21, 2019 14:12
[2019-04-21] MEDS: ACETAMINOPHEN 325 MG TAB PO PRN (15:02)
[2019-04-21 15:18] VITALS: BP 143/67; PULSE 63; RESP 20
[2019-04-21] MEDS: REPAGLINIDE 1 MG TAB PO SCH (17:27)
[2019-04-21] MEDS: metFORMIN 500 MG TAB PO SCH (17:28)
[2019-04-21] MEDS: INSULIN ASPART [NOVOLOG] 3 ML PEN SC SCH (17:36)
[2019-04-21 19:23] VITALS: BP 149/67; PULSE 58; RESP 18
[2019-04-21] MEDS ORDERED: FAMOTIDINE 20 MG INJ IV SCH (21:00)
[2019-04-21] MEDS: NAPROXEN 500 MG TAB PO SCH (21:38)
[2019-04-21 23:35] VITALS: BP 139/63; PULSE 57; RESP 18
[2019-04-22] MEDS ORDERED: ACCU-CHEK XX SCH (02:00)
[2019-04-22] MEDS: ACETAMINOPHEN 325 MG TAB PO PRN (03:29)
[2019-04-22 04:23] VITALS: BP 126/54; RESP 18
[2019-04-22] MEDS ORDERED: PANTOPRAZOLE (EC) 40 MG TAB PO SCH (06:00)
[2019-04-22] MEDS ORDERED: LEVOTHYROXINE 125 MCG TAB PO SCH (07:00)
[2019-04-22 07:39] VITALS: BP 126/69; PULSE 58; RESP 22
[2019-04-22] MEDS: metFORMIN 500 MG TAB PO SCH (08:01)
[2019-04-22] MEDS: REPAGLINIDE 1 MG TAB PO SCH ×2 (08:01→11:52)
[2019-04-22] MEDS: INSULIN ASPART [NOVOLOG] 3 ML PEN SC SCH ×2 (08:05→11:49)
[2019-04-22] MEDS ORDERED: ASPIRIN (EC) 81 MG TAB PO SCH (09:00)
[2019-04-22] MEDS ORDERED: CELECOXIB 200 MG CAP PO SCH (09:00)
[2019-04-22] MEDS ORDERED: ASPIRIN 81 MG TAB PO SCH (09:00)
[2019-04-22] MEDS ORDERED: ATENOLOL 50 MG TAB PO SCH (09:00)
[2019-04-22] MEDS ORDERED: ENOXAPARIN 30 MG/0.3 ML SYG SC SCH (09:00)
[2019-04-22] MEDS: NAPROXEN 500 MG TAB PO SCH (09:18)
--- NOTE | 2019-04-22 11:34 | DS ---
Date/Time of Note Date/Time of Note DATE: 04/22/19 TIME: 11:33 Discharge Summary Admission/Discharge Info Admit Date/Time Apr 21, 2019 at 07:12 Discharge Date/Time 04/22/19 Discharge Diagnosis 1) chest pain - check troponin 2) diabetes - monitor blood sugar Patient Condition: Fair Consults none Procedures none Hx of Present Illness Patient with hypertension, diabetes comes in with chest pain and lightheadedness. Patient currently denies any chest pain. Hospital Course Patient with hypertension, diabetes comes in with chest pain and lightheadedness. Patient currently denies any chest pain. Patient ruled out for acute coronary syndrome. Patient has no further pain or lightheadedness. Patient felt to be stable for discharge and can follow up with her regular physician. 1) chest pain - check troponin 2) diabetes - monitor blood sugar Home Meds Reported Medications Aspirin* (Aspirin* EC) 81 Mg Tablet.dr, 81 MG PO DAILY, TAB 04/21/19 Esomeprazole Mag Trihydrate (Nexium) 40 Mg Capsule.dr, 40 MG PO DAILY, #30 CAP 04/21/19 Levothyroxine Sodium* (Levothyroxine Sodium*) 125 Mcg Tablet, 125 MCG PO BEFORE BREAKFAST, #30 TAB 04/21/19 Metformin Hcl* (Metformin Hcl*) 1,000 Mg Tablet, 1000 MG PO WITH BREAKFAST DINNE , #60 TAB 04/21/19 Simvastatin* (Zocor*) 20 Mg Tablet, 20 MG PO QHS, #30 TAB 04/21/19 Celecoxib* (Celebrex*) 200 Mg Capsule, 200 MG PO DAILY, CAP 04/21/19 Repaglinide* (Repaglinide*) 1 Mg Tablet, 1 MG PO AC MEALS, TAB 04/21/19 Naproxen* (Naproxen*) 500 Mg Tablet, 500 MG PO BID, TAB 04/21/19 Atenolol* (Atenolol*) 50 Mg Tablet, 50 MG PO DAILY, #30 TAB 04/21/19 Benazepril-Hydrochlorothiazide (Benazepril-Hydrochlorothiazide) 20-12.5 Mg Tablet, 1 TAB PO DAILY, #30 TAB 04/21/19 Alendronate Sodium* (Fosamax*) 70 Mg Tablet, 70 MG PO QSAT, #4 TAB 04/21/19 Discontinued Reported Medications [place]-3 Acid Ethyl Esters (Lovaza) 1 Gm Capsule, 1 GM PO DAILY, CAP 03/18/17 Levothyroxine Sodium* (Levothyroxine Sodium*) 125 Mcg Tablet, 125 MCG PO BEFORE BREAKFAST, #30 TAB 03/18/17 Canagliflozin (Invokana) 100 Mg Tablet, 100 MG PO DAILY, TAB 03/18/17 Esomeprazole Mag Trihydrate (Nexium) 40 Mg Capsule.dr, 40 MG PO DAILY, #30 CAP 03/18/17 Alendronate Sodium* (Fosamax*) 70 Mg Tablet, 70 MG PO Q7D, #4 TAB 03/18/17 Metformin Hcl* (Metformin Hcl*) 1,000 Mg Tablet, 1000 MG PO WITH BREAKFAST DINNE, #60 TAB 03/18/17 Repaglinide* (Repaglinide*) 0.5 Mg Tablet, 0.5 MG PO AC MEALS, TAB 03/18/17 Benazepril-Hydrochlorothiazide (Benazepril-Hydrochlorothiazide) 20-12.5 Mg Tablet, 1 TAB PO DAILY, #30 TAB 03/18/17 Aspirin* (Aspirin* EC) 81 Mg Tablet.dr, 81 MG PO DAILY, TAB 03/18/17 Amlodipine Besylate* (Amlodipine Besylate*) 2.5 Mg Tablet, 2.5 MG PO BID, #30 TAB 03/18/17 Simvastatin* (Zocor*) 20 Mg Tablet, 20 MG PO QHS, #30 TAB 03/18/17 Ascorbic Acid* (Vitamin C*) 500 Mg Capsule.sa, 500 MG PO DAILY, CAP 03/18/17 Fluoxetine Hcl* (Fluoxetine Hcl*) 20 Mg Capsule, 20 MG PO DAILY, CAP 03/18/17 Discontinued Scripts Ondansetron (Ondansetron Odt) 4 Mg Tab.rapdis, 4 MG PO Q6H PRN for NAUSEA AND/OR VOMITING, #10 TAB Prov:KIERSTEN ANDREWS MD 09/11/18 Loperamide Hcl* (Imodium*) 2 Mg Capsule, 2 MG PO Q6H PRN for DIARRHEA, #20 CAP MAX 16 mg/day Prov:KIERSTEN ANDREWS MD 09/11/18 Sennosides* (Senna Lax*) 8.6 Mg Tablet, 1 TAB PO DAILY, #30 TAB Prov:REG RICE MD 03/18/17 Docusate Sodium* (Colace*) 100 Mg Capsule, 100 MG PO BID, #60 CAP Prov:REG RICE MD 03/18/17 Hydrocodone/Acetaminophen ([place] 10-325 Tablet) 1 Each Tablet, 1 TAB PO Q6H PRN for PAIN, #7 TAB Prov:REG RICE MD 03/18/17 Primary Care Provider Dean Joshua MD Pending Labs Laboratory Tests Test 04/21/19 14:00 04/21/19 17:19 04/21/19 19:03 04/22/19 03:17 Creatine 166 147 Kinase IU/L (23-200) IU/L (23-200) Creatine Kinase 0.9 0.9 Index Creatinine 1.47 1.26 Kinase MB ng/ml (0.0-2.4) ng/ml (0.0-2.4 (Mass) ) Troponin I < 0.012 < 0.012 ng/ml (0.000-0. ng/ml (0.000-0 120) .120) Bedside 193 154 Glucose mg/dL (70-220) mg/dL (70-220) Test 04/22/19 05:12 04/22/19 07:41 White Blood 5.8 Count 10^3/ul (4.8-10 .8) Red Blood 4.14 Count 10^6/ul (4.20-5 .40) Hemoglobin 11.0 g/dl (12.0-16.0 ) Hematocrit 34.8 % (37.0-47.0) Mean 84.1 Corpuscular fl (82.0-101.0) Volume Mean 26.6 Corpuscular pg (29.0-33.0) Hemoglobin Mean 31.6 Corpuscular g/dl (32.0-37.0 Hemoglobin Conc ) ent Red Cell 14.6 Distribution % (11.5-14.5) Width Platelet Count 149 10^3/UL (140-41 5) Mean Platelet 13.1 Volume fl (7.4-10.4) Immature 0.300 Granulocytes % % (0.001-0.429) Neutrophils % 53.5 % (39.0-77.0) Lymphocytes % 36.6 % (15.0-51.0) Monocytes % 7.6 % (0.0-11.0) Eosinophils % 1.7 % (0.0-7.0) Basophils % 0.3 % (0.0-2.0) Nucleated Red 0.0 Blood Cells % /100WBC (0.0-0. 0) Immature 0.020 Granulocytes # 10^3/ul (0.0-0. 031) Neutrophils # 3.1 10^3/ul (1.6-7. 5) Lymphocytes # 2.1 10^3/ul (0.8-2. 9) Monocytes # 0.4 10^3/ul (0.3-0. 9) Eosinophils # 0.1 10^3/ul (0.0-0. 5) Basophils # 0.0 10^3/ul (0.0-0. 1) Nucleated Red 0.0 Blood Cells # 10^3/ul (0.0-0. 0) Sodium Level 140 mmol/L (135-144 ) Potassium 4.3 Level mmol/L (3.5-5.1 ) Chloride Level 104 mmol/L (97-110) Carbon Dioxide 29 Level mmol/L (21-31) Anion Gap 7 (5-13) Blood Urea 15 mg/dl (7-20) Nitrogen Creatinine 0.67 mg/dl (0.44-1.0 0) Est Glomerular > 60 Filtrat mL/min (>60) Rate mL/min Glucose Level 157 mg/dl (70-220) Hemoglobin A1c 7.1 % (0-5.9) Calcium Level 9.0 mg/dl (8.4-10.2 ) Total 0.4 Bilirubin mg/dl (0.2-1.3) Direct 0.00 Bilirubin mg/dl (0.00-0.2 0) Indirect 0.4 Bilirubin mg/dl (0-1.1) Aspartate Amino 24 IU/L (15-46) Transf (AST/SGO T) Alanine 28 IU/L (13-69) Aminotransferas e (ALT/SGPT) Alkaline 55 Phosphatase IU/L (42-121) Total Protein 7.0 g/dl (6.1-8.1) Albumin 3.6 g/dl (3.3-4.9) Globulin 3.40 g/dl (1.3-3.2) Albumin/Globuli 1.05 n Ratio Bedside 136 Glucose mg/dL (70-220) VICENTA GAUTAM Apr 22, 2019 11:34
[2019-04-22 11:35] VITALS: BP 194/81; PULSE 51; RESP 22
[2019-04-22 12:11] VITALS: BP 140/65; PULSE 58
== END 2019-04-22 13:40 | disposition home or self-care (01) ==
LOC: E/R 05:13 → 6WM 07:12
PROVIDERS: ADMIT Internal Medicine; ATTEND Internal Medicine
DX: R07.9 Chest pain, unspecified (principal); E11.9 Type 2 diabetes mellitus without complications; E03.9 Hypothyroidism, unspecified; E78.00 Pure hypercholesterolemia, unspecified; I10 Essential (primary) hypertension; Z79.82 Long term (current) use of aspirin; Z79.84 Long term (current) use of oral hypoglycemic drugs
CPT/HCPCS: 36415; 71045; 80053; 82550; 82553; 82962; 83036; 83690; 83880; 84484; 85025; 93005; 99285; G0378; J1650; J1815; J2405; J7040